=== PATIENT | female | born 1970 | race Caucasian/White ===

== ENCOUNTER → 2020-09-26 16:41 | Outpatient (CLI) | payer OTHER, SELFPAY | PROVIDERS: Family Provider Obstetrics & Gynecology; PCP Physician Assistant Medical; Referring Provider Obstetrics & Gynecology; Visit Provider Obstetrics & Gynecology | DX: N95.1 Menopausal and female climacteric states (principal) | CPT/HCPCS: 36415; 83001 ==

== ENCOUNTER → 2022-03-23 11:17 | Outpatient (CLI) | payer OTHER, SELFPAY ==
[2022-03-23 15:19] LABS: Urine N gonorrhoeae NOT DETECTED
[2022-03-23 15:20] LABS: Urine Chlamydia NOT DETECTED
[2022-03-23 15:25] LABS: Hepatitis B Surface Antigen NEGATIVE s/c (NEGATIVE)
[2022-03-23 15:39] LABS: HIV 1 & 2 Ab/Ag 4th Gen Combo NEGATIVE (NEGATIVE); Hep C Virus Ab w/Reflex Quant NEGATIVE s/c (NEGATIVE)
[2022-03-24 04:42] LABS: HSV1IGG 3.57 index (0.00-0.90)
[2022-03-24 06:22] LABS: RPR Screen Non Reactive (Non Reactive)
== END ==
PROVIDERS: Family Provider Obstetrics & Gynecology; PCP Physician Assistant Medical; Referring Provider Obstetrics & Gynecology; Visit Provider Obstetrics & Gynecology
DX: Z20.2 Contact with and (suspected) exposure to infections with a predominantly sexual mode of transmission (principal)
CPT/HCPCS: 36415; 86592; 86695; 86696; 86803; 87340; 87389; 87491; 87591

== ENCOUNTER → 2022-04-09 15:45 | Outpatient (CLI) | payer OTHER, SELFPAY ==
[2022-04-09 17:24] LABS: Follicle Stimulating Hormone 30.9 mIU/mL
== END ==
PROVIDERS: Family Provider Obstetrics & Gynecology; PCP Physician Assistant Medical; Referring Provider Obstetrics & Gynecology; Visit Provider Obstetrics & Gynecology
DX: N95.1 Menopausal and female climacteric states (principal)
CPT/HCPCS: 36415; 83001

== ENCOUNTER → 2022-04-14 16:05 | Outpatient (CLI) | payer OTHER, SELFPAY ==
--- NOTE | 2022-04-14 16:06 | DI.US.S_ITS ---
PROCEDURE: US PELVIC COMPLETE INDICATIONS: bleeding TECHNIQUE: Real-time scanning was performed of the pelvic organs, with image documentation. Additional endovaginal scanning was necessary due to incomplete visualization of the adnexal and endometrial structures by transabdominal scanning. COMPARISON: None. FINDINGS: Uterus: Uterus is anteverted and normal in size at 8.9 x 5.1 x 4.1 cm. The myometrium is heterogeneous. Possible ventian blind artifact. The endometrium measures 2 mm combined thickness. IUD in the expected location. No fibroids seen. Small nabothian cysts. Ovaries: The right ovary measures 3.1 x 2.4 x 1.5 cm, with a calculated ovarian volume of 6 cc. Less than 12 ovarian follicles in the are the right ovary. Simple right ovarian cyst measuring 1.9 cm. The left ovary is not seen. Other: No pathologic free abdominal or pelvic fluid. IMPRESSION: 1. IUD is in the expected location. 2. No endometrial thickening. 3. Simple right ovarian cyst measuring 1.9 cm. Left ovary is not seen. 4. Uterus has a heterogeneous appearance. This finding could be seen in the setting of uterine adenomyosis. MRI could be considered for further evaluation to evaluate the junctional zone. We strive to produce accurate, complete, and clear reports of imaging services. To assist us in improving patient care, this report was composed using standard report templates and voice recognition software. Therefore, it may contain abnormal punctuation, insertions and/or omissions. Occasional wrong-word or sound-alike substitutions may occur. Though we review the report and make efforts to correct it, we do recommend that the report be read carefully in proper context to recognize any text inaccuracies. Dictated by: Brad Aldridge M.D. on 04/15/2022 at 8:59 Approved by: Brad Aldridge M.D. on 04/15/2022 at 9:04
== END ==
PROVIDERS: Family Provider Obstetrics & Gynecology; PCP Physician Assistant Medical; Referring Provider Obstetrics & Gynecology; Visit Provider Obstetrics & Gynecology
DX: N92.6 Irregular menstruation, unspecified (principal); N83.291 Other ovarian cyst, right side; Z97.5 Presence of (intrauterine) contraceptive device
CPT/HCPCS: 76856

== ENCOUNTER → 2022-05-01 16:16 | Outpatient (CLI) | payer OTHER, SELFPAY ==
[2022-05-01 18:05] LABS: HEMOLYSIS < 15 (0-50)
[2022-05-01 18:30] LABS: Progesterone, Total 0.33 ng/mL
[2022-05-01 18:37] LABS: Free T4, Direct Thyroxine 1.08 ng/dL (0.78-2.19)
[2022-05-01 18:43] LABS: Thyroid Stimulating Hormone 1.65 uIU/mL (0.47-4.68)
[2022-05-01 19:25] LABS: Iron 76 ug/dL (37-170)
[2022-05-01 19:36] LABS: Percent Iron Saturation 27 % (15-50); Total Iron Binding Capacity 279 ug/dL (265-497); Transferrin 219 mg/dL (206-381)
== END ==
PROVIDERS: Family Provider Obstetrics & Gynecology; PCP Physician Assistant Medical; Referring Provider Obstetrics & Gynecology; Visit Provider Obstetrics & Gynecology
DX: R53.83 Other fatigue (principal); N95.1 Menopausal and female climacteric states
CPT/HCPCS: 36415; 82306; 83540; 83550; 84144; 84439; 84443; 84481

== ENCOUNTER → 2023-03-25 09:35 | Outpatient (CLI) | payer OTHER, SELFPAY ==
[2023-03-25 10:36] LABS: Follicle Stimulating Hormone 7.59 mIU/mL
[2023-03-25 10:52] LABS: Estradiol, Total 203.7 pg/mL
[2023-03-25 16:56] LABS: Progesterone, Total 1.02 ng/mL
[2023-04-06 06:09] LABS: Percent Free Testosterone 0.75 % (0.50-2.80); Testosterone Free 1.22 ng/dL (0.10-0.85); Testosterone Total 162.5 ng/dL (.)
== END ==
PROVIDERS: Family Provider Obstetrics & Gynecology; PCP Physician Assistant Medical; Referring Provider Obstetrics & Gynecology; Visit Provider Obstetrics & Gynecology
DX: N95.1 Menopausal and female climacteric states (principal); Z79.890 Hormone replacement therapy
CPT/HCPCS: 36415; 82670; 83001; 84144; 84402; 84403

== ENCOUNTER → 2023-04-05 06:42 | Outpatient (CLI) | payer OTHER, SELFPAY ==
--- NOTE | 2023-04-05 06:42 | DI.US.S_ITS ---
PROCEDURE: US PELVIC COMPLETE INDICATIONS: IRREGULAR MENSES. TECHNIQUE: Real-time scanning was performed of the pelvic organs, with image documentation. Additional endovaginal scanning was necessary due to incomplete visualization of the adnexal and endometrial structures by transabdominal scanning. COMPARISON: None. FINDINGS: Uterus: Uterus is anteverted and normal in size at 8.1 x 5.4 x 4.5 cm. Linear striations with parallel shadowing is noted in myometrium. No discrete uterine fibroids. The endometrium measures 3.1 mm combined thickness. There is no endometrial mass or fluid. Intrauterine device is seen in its normal central endometrial location. Ovaries: The right ovary measures 2.4 x 1.8 x 0.9 cm, with a calculated ovarian volume of 2.0 cc. The left ovary measures 5.6 x 3.5 x 2.3 cm, with a calculated ovarian volume of 23.9 cc. Simple cyst is noted in left ovary measures 4 x 3 x 2.4 cm in size. Less than 12 follicles can be seen in each ovary. No adnexal masses are seen. Other: No pathologic free abdominal or pelvic fluid. IMPRESSION: 1. Striated appearance of myometrium with parallel shadowing concerning for adenomyosis. No discrete uterine fibroid is seen. No endometrial mass or fluid. Intrauterine device is seen in its normal central endometrial location. 2. Simple cyst in left ovary measures 4 x 3 x 2.4 cm in size suggest ultrasound follow-up. No solid appearing ovarian lesion. Normal appearing right ovary. We strive to produce accurate, complete, and clear reports of imaging services. To assist us in improving patient care, this report was composed using standard report templates and voice recognition software. Therefore, it may contain abnormal punctuation, insertions and/or omissions. Occasional wrong-word or sound-alike substitutions may occur. Though we review the report and make efforts to correct it, we do recommend that the report be read carefully in proper context to recognize any text inaccuracies. Dictated by: Ciro Sanders M.D. on 04/05/2023 at 17:26 Approved by: Ciro Sanders M.D. on 04/05/2023 at 17:31
== END ==
LOC: US 06:42
PROVIDERS: Family Provider Obstetrics & Gynecology; PCP Physician Assistant Medical; Referring Provider Obstetrics & Gynecology; Visit Provider Obstetrics & Gynecology
DX: N92.6 Irregular menstruation, unspecified (principal); N83.292 Other ovarian cyst, left side; Z97.5 Presence of (intrauterine) contraceptive device
CPT/HCPCS: 76830; 76856

== ENCOUNTER → 2024-09-22 08:36 | Outpatient (CLI) | payer OTHER, SELFPAY ==
--- NOTE | 2024-09-22 08:38 | DI.US.S_ITS ---
PROCEDURE: US PELVIC COMPLETE INDICATIONS: follow up ultrasound TECHNIQUE: Real-time scanning was performed of the pelvic organs, with image documentation. Additional endovaginal scanning was necessary due to incomplete visualization of the adnexal and endometrial structures by transabdominal scanning. COMPARISON: [facility], US, US PELVIC COMPLETE, 04/05/2023, 7:05. FINDINGS: Uterus: Uterus is anteverted and normal in size at 8.2 x 3.9 x 6.2 cm. The myometrium is heterogenous. The endometrium measures 5.6 mm combined thickness. Intrauterine device in place Ovaries: The right ovary measures 0.9 x 2.2 x 1.1 cm, with a calculated ovarian volume of 1.1 cc. The left ovary measures 1.0 x 2.6 x 1.6 cm, with a calculated ovarian volume of 2.0 cc. The ovaries have a normal sonographic appearance. Less than 12 follicles can be seen in each ovary. No adnexal masses are seen. Other: No pathologic free abdominal or pelvic fluid. IMPRESSION: Previously noted 4 cm simple cyst in the left ovary is no longer present. Approved by: Lobito Dominguez M.D. on 09/22/2024 at 14:46
== END ==
LOC: US 08:38
PROVIDERS: Family Provider Obstetrics & Gynecology; PCP Physician Assistant Medical; Referring Provider Obstetrics & Gynecology; Visit Provider Obstetrics & Gynecology
DX: N95.1 Menopausal and female climacteric states (principal); N83.292 Other ovarian cyst, left side; Z79.890 Hormone replacement therapy; Z97.5 Presence of (intrauterine) contraceptive device
CPT/HCPCS: 76830; 76856